=== PATIENT | female | born 1985 | race Caucasian/White ===

== ENCOUNTER 2018-02-21 20:00 | Inpatient (IN) | payer OTHER ==
[2018-02-22] MEDS ORDERED: Promethazine HCl 25 MG/ML VIAL IM PRN (02:50)
[2018-02-22] MEDS ORDERED: Ondansetron HCl/PF 4 MG/2 ML Vial IVP PRN (02:50)
[2018-02-22] MEDS ORDERED: Acetaminophen 500 MG TAB PO PRN (02:50)
[2018-02-22] MEDS ORDERED: Lactated Ringer's 1,000 ML IV SCH (02:50)
[2018-02-22 02:54] LABS: Hemoglobin 11.8 g/dL (12.0-16.0); Mean Corpuscular HGB CONC 36.3 g/dL (32.0-36.0); Mean Corpuscular Hemoglobin 34.5 pg (27.0-31.0); Mean Corpuscular Volume 95.1 fL (78.0-98.0); Platelet Count 154 thou/uL (130-400); RBC Distribution Width 12.5 % (11.5-14.5); Red Blood Cell (RBC) Count 3.42 mill/uL (4.20-5.40); White Blood Cell (WBC) Count 8.1 thou/uL (4.8-10.8)
[2018-02-22] MEDS ORDERED: Misoprostol 100 MCG TAB VAG PRN (02:54)
[2018-02-22] MEDS ORDERED: NS w/ Oxytocin 10 units 500 ML IV SCH (03:00)
[2018-02-22] MEDS ORDERED: Misoprostol 100 MCG TAB VAG SCH (03:00)
[2018-02-22 03:26] LABS: HBSAg Index 0.18 S/CO (0-0.99); Hep B Surf Ag Non-Reactive S/CO (NonReactive)
[2018-02-22 04:57] LABS: Syphilis Antibody Nonreactive (Nonreactive); Syphilis Antibody Index 0.03 S/CO (<1.00 Non-Reactive)
[2018-02-22] MEDS: Butorphanol Tartrate 1 MG/ML VIAL SLOW IVP PRN ×2 (07:39→08:47)
[2018-02-22] MEDS ORDERED: Misoprostol 100 MCG TAB PO PRN (08:00)
[2018-02-22] MEDS: Lactated Ringer's 1,000 ML IV SCH ×2 (09:23→13:25)
[2018-02-22] MEDS ORDERED: Bupivacaine 0.75% 13.4 ML, fentaNYL Citrate/PF 400 MCG in Sodium Chloride 0.9% 78.6 ML EPIDURAL SCH (09:45)
[2018-02-22] MEDS ORDERED: DISCONTINUE ALL PREVIOUS NARCOTICS FS SCH (09:45)
[2018-02-22] MEDS ORDERED: ePHEDrine/0.9% NaCl/PF SYRINGE 50 mg/10 ml SLOW IVP PRN (10:00)
[2018-02-22] MEDS ORDERED: fentaNYL Citrate/PF 400 MCG, Bupivacaine 0.5% 20 ML in Sodium Chloride 0.9% 72 ML EPIDURAL SCH (10:00)
[2018-02-22] MEDS ORDERED: Naloxone HCl 0.4 mg/ml Vial IVP PRN ×2 (10:00)
[2018-02-22] MEDS ORDERED: Communication Order-Pharmacy FS SCH (10:00)
[2018-02-22] MEDS ORDERED: Lactated Ringer's 500 ML IV PRN (10:00)
[2018-02-22] MEDS ORDERED: Bupivacaine HCl 0.5%/Epinephrine 1:200,000/PF 30 ml Vial ONE (13:39)
[2018-02-22] MEDS ORDERED: NS / Oxytocin 40 units/1000ml 1,000 ML ONE (14:06)
[2018-02-22] MEDS ORDERED: Lidocaine 1% (PF) 30 ML VIAL ONE (15:12)
[2018-02-22] MEDS: NS w/ Oxytocin 10 units 500 ML IV SCH (15:15)
[2018-02-22] MEDS ORDERED: NS / Oxytocin 40 units/1000ml 1,000 ML IV SCH ×2 (15:45→20:00)
[2018-02-22] MEDS ORDERED: Lidocaine 1% (PF) 30 ML VIAL IJ SCH (15:45)
[2018-02-22] MEDS ORDERED: Zolpidem Tartrate 5 MG TAB PO PRN (20:00)
[2018-02-22] MEDS ORDERED: Bisacodyl 10 MG SUPP PR PRN (20:00)
[2018-02-22] MEDS ORDERED: Acetaminophen/Codeine 30-300mg Tablet PO PRN ×2 (20:00)
[2018-02-22] MEDS ORDERED: diphenhydrAMINE 25 MG CAP PO PRN (20:00)
[2018-02-22] MEDS ORDERED: Methylergonovine 0.2 MG/ML VIAL IM PRN (20:00)
[2018-02-22] MEDS ORDERED: Milk Of Magnesia 30 ML UDCUP PO PRN (20:00)
[2018-02-22] MEDS ORDERED: Lanolin Ointment 7 GM TUBE TOP PRN (20:00)
[2018-02-22] MEDS ORDERED: HYDROcodone/Acetaminophen 5/325 mg Tablet PO PRN ×2 (20:00)
[2018-02-22] MEDS ORDERED: Ondansetron HCl/PF 4 MG/2 ML Vial SLOW IVP PRN (20:00)
[2018-02-22] MEDS ORDERED: Adacel (T-DAP) 0.5 ML VIAL IM SCH (20:00)
[2018-02-22] MEDS: Ibuprofen 800 MG TAB PO SCH (22:09)
[2018-02-22] MEDS: Docusate Calcium (SURFAK) 240 MG CAP PO SCH (22:09)
[2018-02-23] MEDS: Ibuprofen 800 MG TAB PO SCH ×3 (05:40→21:39)
[2018-02-23] MEDS: Lactated Ringer's 1,000 ML IV SCH ×3 (05:42→15:21)
[2018-02-23] MEDS: NS w/ Oxytocin 10 units 500 ML IV SCH (05:43)
[2018-02-23 05:57] LABS: Hemoglobin 10.1 g/dL (12.0-16.0)
[2018-02-23] MEDS ORDERED: Benzocaine/Menthol 20-0.5% 60 ML CAN TOP PRN (06:00)
[2018-02-23] MEDS ORDERED: Preparation H Ointment 28 GM TUBE TOP PRN (06:02)
[2018-02-23] MEDS: Ferrous Sulfate 325 MG TAB PO SCH ×2 (08:10→15:19)
[2018-02-23] MEDS: Prenatal Vitamin 1 TAB PO SCH (08:13)
[2018-02-23] MEDS: Docusate Calcium (SURFAK) 240 MG CAP PO SCH ×2 (08:13→21:39)
[2018-02-24] MEDS: NS w/ Oxytocin 10 units 500 ML IV SCH (00:13)
[2018-02-24] MEDS: Lactated Ringer's 1,000 ML IV SCH ×3 (00:13→14:53)
[2018-02-24] MEDS: Ibuprofen 800 MG TAB PO SCH ×2 (06:27→13:35)
[2018-02-24 08:09] VITALS: BP 116/72; TEMP 97.9
[2018-02-24] MEDS: Docusate Calcium (SURFAK) 240 MG CAP PO SCH (08:53)
[2018-02-24] MEDS: Prenatal Vitamin 1 TAB PO SCH (08:53)
[2018-02-24] MEDS: Ferrous Sulfate 325 MG TAB PO SCH ×2 (08:54→13:44)
== END 2018-02-24 15:06 | disposition home or self-care (01) | DRG 782 ==
LOC: L&D 02-22 00:54 → 3SW 02-22 18:37
PROVIDERS: ADMIT Obstetrics & Gynecology; ATTEND Obstetrics & Gynecology
DX: O13.3 Gestational [pregnancy-induced] hypertension without significant proteinuria, third trimester (principal); Z3A.35 35 weeks gestation of pregnancy
CPT/HCPCS: 36415; 51702; 85014; 85018; 85027; 86780; 86850; 86900; 86901; 87340; J0595; J0670; J2001; J3010; J7050